=== PATIENT | female | born 1995 | race African-American/Black ===

== ENCOUNTER → 2020-10-12 | Outpatient (CLI) | payer OTHER | LOC: COL.RAD 13:02 | DX: G43.009 Migraine without aura, not intractable, without status migrainosus (principal) ==

== ENCOUNTER → 2020-11-27 | Outpatient (CLI) | payer OTHER | LOC: MHCPAIN 10:31 | DX: M53.3 Sacrococcygeal disorders, not elsewhere classified (principal); M79.18 Myalgia, other site; M41.86 Other forms of scoliosis, lumbar region | CPT/HCPCS: G0463 ==